=== PATIENT | female | born 1940 | race Hispanic/Latino ===

== ENCOUNTER → 2023-12-22 | Outpatient (CLI) | payer MEDICARE ==
[~2023-12-22] MED LIST: IOHEXOL 350 MG/ML 100ML INFUS..BTL IV ONE
--- NOTE | 2023-12-22 12:22 | HMCIMG ---
CT ABD/PEL WWO 3 PHASE HISTORY: Renal mass COMPARISON: Ultrasound from 11/25/2011 TECHNIQUE: Multiple sequential axial images of the abdomen were obtained from the dome of the diaphragm through iliac crests. Patient was given 100 cc of Omnipaque through intravenous route. Oral contrast was given. Dynamic imaging technique was used. FINDINGS: No pleural effusion is seen bilaterally. There is no evidence of parenchymal disease or pulmonary nodule of the visualized lower lungs. Degenerative changes are seen of the thoracolumbar spine. Liver is enlarged with fatty changes measuring 16.3 cm. The liver, spleen, adrenal glands and pancreas are unremarkable. There is no evidence of hydronephrosis bilaterally. Tiny right lower pole renal stones are seen. There are bilateral renal cysts with the largest on the right measuring 3.6 x 3.5 cm. No bowel obstruction is seen. There is diverticulosis. Fecal material is seen in the colon. There are normal-sized retroperitoneal and mesenteric lymph nodes. No ascites is seen. Atherosclerotic changes are present. IMPRESSION: 1. No definite CT evidence of renal mass is seen. There are extensive bilateral renal cysts. Tiny right lower pole renal pelvic stones are seen. There is mild diverticulosis. CT was performed with one or more following dose reduction techniques: automated exposure control, adjustment of the mA and kv according to patient's size, or use of a iterative reconstruction technique.
== END | disposition home or self-care (01) ==
LOC: RAH 09:55
PROVIDERS: ATTEND Family Medicine
DX: K57.30 Diverticulosis of large intestine without perforation or abscess without bleeding (principal); N20.0 Calculus of kidney; N28.89 Other specified disorders of kidney and ureter; K76.0 Fatty (change of) liver, not elsewhere classified; N28.1 Cyst of kidney, acquired; M47.815 Spondylosis without myelopathy or radiculopathy, thoracolumbar region; D41.02 Neoplasm of uncertain behavior of left kidney; D41.01 Neoplasm of uncertain behavior of right kidney
CPT/HCPCS: 74178; Q9967